=== PATIENT | female | born 1955 | race Caucasian/White ===

== ENCOUNTER 2016-09-22 13:14 | Emergency (ER) | payer OTHER ==
[~2016-09-22] VITALS: Ht 157.5 cm; Wt 77.0 kg
[~2016-09-22 13:14] MED LIST: ACET-514 PO; ACYC800T PO; ATOR20TA38 PO; CALC1TAB92 PO; DARU600T3 PO; ETRA200T PO; FLUO20CA22 PO; GABA300C16 PO; GEMF600T60 PO; MECL-77 PO; MULT-552 PO; PROC5TAB9 PO; RALT400T4 PO; RITO100T PO; TRIA15CR55 TOP; TRUV PO; WARF6TAB PO
[2016-09-22 13:19] VITALS: Ht 157.5 cm; Wt 77.0 kg
--- NOTE | 2016-09-22 14:34 | ERD ---
ER Documentation Chief Complaint Date/Time DATE: 09/22/16 TIME: 14:31 Chief Complaint Pt with L hip and leg pain. States I had a clot 7 years ago. 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 She complains of achy pain that is radiating, pointing to her left hip and goes down to her left ankle. She states it started while she was walking. She has not had any swelling. She takes Pradaxa daily, previously she was on Coumadin daily. She denies any distinct trauma or fevers or chills. ROS All systems reviewed and are negative except as per history of present illness. Medications Home Meds Active Scripts Acetaminophen with Codeine (Acetaminophen-Cod #3 Tablet) 1 Each Tablet, 1 TAB PO Q6H Y for PAIN, #10 TAB Prov:SHITAL SOLIS PA-C 09/22/16 Naproxen* (Naprosyn*) 500 Mg Tablet, 500 MG PO BID Y for PAIN AND/OR INFLAMMATION, #30 TAB Prov:SHITAL SOLIS PA-C 09/22/16 Reported Medications Calcium Carbonate/Vitamin D3 (Oyster Shell 500 Mg + Vit D Tb) 1 Tab Tablet, 1 TAB PO DAILY 12/19/13 Multivitamins* (Once Daily*) 1 Tab Tablet, 1 TAB PO DAILY, TAB 12/19/13 Acetaminophen (Mapap) 325 Mg Tablet, 325 MG PO Q8 Y for PAIN 12/19/13 Gemfibrozil* (Gemfibrozil*) 600 Mg Tablet, 600 MG PO BID, TAB 12/19/13 Atorvastatin Calcium* (Atorvastatin Calcium*) 20 Mg Tablet, 20 MG PO HS, TAB 12/19/13 Emtricitabine-Tenofovir* (Truvada*) 200-300 Mg Tab, 1 TAB PO DAILY, TAB 12/19/13 Etravirine (INTELENCE) 200 Mg Tablet, 200 MG PO BID 12/19/13 Raltegravir Potassium* (Isentress*) 400 Mg Tablet, 400 MG PO BID, TAB 12/19/13 Acyclovir* (Acyclovir*) 800 Mg Tablet, 800 MG PO DAILY, TAB 12/19/13 Fluoxetine Hcl* (Fluoxetine Hcl*) 20 Mg Capsule, 20 MG PO DAILY, CAP 12/19/13 Ritonavir* (Norvir*) 100 Mg Tablet, 100 MG PO BID, TAB 12/19/13 Triamcinolone Acetonide* (Kenalog*) 0.1%-15GM Cr, 1 APPLIC TOP BID, EA 12/19/13 Meclizine Hcl* (Meclizine Hcl*) 25 Mg Tablet, 25 MG PO DAILY, TAB 12/19/13 Gabapentin* (Gabapentin*) 300 Mg Capsule, 300 MG PO TID, CAP 12/19/13 Warfarin Sodium* (Coumadin*) 6 Mg Tablet, 6 MG PO DAILY, TAB 12/19/13 Darunavir Ethanolate* (Prezista*) 600 Mg Tablet, 600 MG PO BID, TAB 12/19/13 Prochlorperazine* (Prochlorperazine*) 5 Mg Tablet, 5 MG PO TID Y for NAUSEA, TAB 12/19/13 Allergies Allergies: Coded Allergies: aspirin (Unverified Allergy, Unknown, 12/19/13) PMhx/Soc Hx Cardiac Disorders: Yes (htn) Hx Miscellaneous Medical Probl: Yes (blood clots) Hx Alcohol Use: No Hx Substance Use: No Hx Tobacco Use: No Physical Exam Vitals Vital Signs Date Time Temp Pulse Resp B/P Pulse Ox O2 Delivery O2 Flow Rate FiO2 09/22/16 13:19 98.0 80 18 141/64 96 Physical Exam General: Well-developed, well-nourished. The patient appears in no acute distress. HEENT: Head is normocephalic, atraumatic. No scleral icterus. Neck: Supple. Nontender. Lungs: Clear to auscultation. Normal air movement. Heart: Regular rate and rhythm. S1 and S2 are normal. No murmurs, gallops, or rubs. Abdomen: Nondistended. Extremities: Patient is able to flex and extend the left hip, she is ambulatory. There is no warmth erythema or rashes. No swelling. Neurologic: Alert and oriented 3. No focal deficits. Normal speech and gait. Skin: Normal turgor. No rash or lesions. Results 24 hrs DIAGNOSTIC IMAGING REPORT Patient: IZABEL ESCOBAR : 1955 Age: 61 Sex: F MR #: [id number] DOS: 09/22/16 1412 Ordering MD: SHITAL SOLIS PA-C Location: [facility] Room/Bed: PROCEDURE: XR Left Hip. CLINICAL INDICATION: Left hip pain. TECHNIQUE: Two views. Frontal and lateral. COMPARISON: No prior studies are available for comparison. FINDINGS: There is no fracture or dislocation. The soft tissues are normal. Articular surfaces are intact. There is no lytic or blastic lesion. There is no radiopaque foreign body. IMPRESSION: 1. Normal images of the left hip. RPTAT: QQ .Reji Briceno MD, Date Time Electronically viewed and signed by .Reji Briceno MD, on 09/22/2016 15:51 DIAGNOSTIC IMAGING REPORT Patient: IZABEL ESCOBAR : 1955 Age: 61 Sex: F MR #: [id number] DOS: 09/22/16 1412 Ordering MD: SHITAL SOLIS PA-C Location: [facility] Room/Bed: PROCEDURE: Ultrasound of the left lower extremity venous system. CLINICAL INDICATION: History of left lower extremity deep venous thrombosis.. TECHNIQUE: [place] scale with and without compression, color doppler, spectral doppler of the venous system of the left lower extremity was performed. Venous augmentation maneuvers were utilized. COMPARISON: No prior studies are available for comparison. FINDINGS: RIGHT: Common femoral vein: Patent and compressible. Femoral vein: Patent and compressible. Popliteal vein: There is evidence of recanalization of the popliteal vein. Visualized calf veins: Patent and compressible. Soft tissues: Normal IMPRESSION: 1. No evidence of deep venous thrombosis. There is evidence of recanalization of the popliteal vein. RPTAT: [facility] Physician Adal Date Time Electronically viewed and signed by Physician Adal on 09/22/2016 15: 09 JH/ CC: SHITAL SOLIS PA-C Procedures/[facility] Medical decision making: This 61-year-old female, the left hip pain that goes down to her left leg, and her workup included x-rays as well as an ultrasound that was negative for DVT. Patient has a history of deep vein thrombosis, and is currently on Pradaxa. There is no evidence of DVT, no evidence of arterial injury, infectious origin. X-rays of the hip are unremarkable. She does not have any back pain, no signs of cauda equina. Patient's blood pressure was elevated (>120/80) but appears stable without evidence of hypertension emergency or urgency. The patient was counseled about the risks of hypertension and urged to pursue outpatient monitoring and therapy within a week with their primary care physician. Departure Diagnosis: Primary Impression: Leg pain Condition: Good SHITAL SOLIS PA-C Sep 22, 2016 14:34
--- NOTE | 2016-09-22 15:09 | RADRPT ---
PROCEDURE: Ultrasound of the left lower extremity venous system. CLINICAL INDICATION: History of left lower extremity deep venous thrombosis.. TECHNIQUE: [place] scale with and without compression, color doppler, spectral doppler of the venous system of the left lower extremity was performed. Venous augmentation maneuvers were utilized. COMPARISON: No prior studies are available for comparison. FINDINGS: RIGHT: Common femoral vein:Patent and compressible. Femoral vein:Patent and compressible. Popliteal vein:There is evidence of recanalization of the popliteal vein. Visualized calf veins:Patent and compressible. Soft tissues:Normal IMPRESSION: 1. No evidence of deep venous thrombosis. There is evidence of recanalization of the popliteal vei n. RPTAT: [facility] Physician Adal Date Time Electronically viewed and signed by Physician Adal on 09/22/2016 15:09 /
--- NOTE | 2016-09-22 15:52 | RADRPT ---
PROCEDURE: XR Left Hip. CLINICAL INDICATION: Left hip pain. TECHNIQUE: Two views. Frontal and lateral. COMPARISON: No prior studies are available for comparison. FINDINGS: There is no fracture or dislocation. The soft tissues are normal. Articular surfaces are intact. There is no lytic or blastic lesion. There is no radiopaque foreign body. IMPRESSION: 1. Normal images of the left hip. RPTAT: QQ .Reji Briceno MD, MD Date Time Electronically viewed and signed by .Reij Briceno MD, MD on 09/22/2016 15:51 .R/
[2016-09-22] MEDS ORDERED: NAPR-260 PO (16:12)
[2016-09-22] MEDS ORDERED: ACET1TAB40 PO (16:12)
== END 2016-09-22 16:30 | disposition home or self-care (01) ==
LOC: FTE 13:14
DX: M79.605 Pain in left leg (principal); I10 Essential (primary) hypertension; Z79.01 Long term (current) use of anticoagulants
CPT/HCPCS: 73510; 93971; Z7502